=== PATIENT | male | born 1995 | race Caucasian/White ===

== ENCOUNTER 2019-02-06 08:42 | Emergency (ER) | payer MEDICAID ==
[~2019-02-06] VITALS: Ht 170.2 cm; Wt 75.0 kg
[2019-02-06 09:07] LABS: BASOPHILS % (AUTO) 0.4 % (0.0-2.0); EOSINOPHILS % (AUTO) 0.2 % (1.0-6.0); HEMATOCRIT 48.6 % (41-53); HEMOGLOBIN 16.5 g/dL (13.5-17.5); LYMPHOCYTES # (AUTO) 2.2 K/uL (1.0-4.8); MEAN CORPUSCULAR HEMOGLOBIN 31.8 pg (26.0-34.0); MEAN CORPUSCULAR HGB CONC 33.8 G/dL (31.0-37.0); MEAN CORPUSCULAR VOLUME 94 fL (80-100); MONOCYTES # (AUTO) 0.4 K/uL (0.1-1.0); MONOCYTES % (AUTO) 4.9 % (2.0-9.0); NEUTROPHILS # (AUTO) 5.6 K/uL (1.8-7.7); NEUTROPHILS % (AUTO) 67.5 % (40.0-70.0); PLATELET COUNT (AUTO) 252 K/uL (150-450); RED BLOOD CELL COUNT(AUTO) 5.18 MIL/uL (4.50-5.90); RED CELL DISTRIBUTION WIDTH 13.7 % (11.5-14.5)
[2019-02-06 09:24] LABS: ANION GAP 14 mmol/L (8-16); CALCIUM, TOTAL 9.8 mg/dL (8.8-10.5); CARBON DIOXIDE 22 mmol/L (22-29); CHLORIDE 99 mmol/L (98-107); CREATININE 1.19 mg/dL (0.60-1.30); GLOMERULAR FILTR. RATE CALC > 60 mL/min (>60); GLUCOSE,RANDOM 194 mg/dL (70-110); POTASSIUM 3.4 mmol/L (3.5-5.1); SODIUM SERUM 135 mmol/L (136-145); UREA NITROGEN, BLOOD 16 mg/dL (7-18)
[2019-02-06 09:26] LABS: SALICYLATE < 2.8 mg/dL (2.8-20.0)
[2019-02-06 09:30] LABS: ALANINE AMINOTRANSFERASE 56 U/L (12-78); ALBUMIN 4.8 g/dL (3.4-5.0); ALKALINE PHOSPHATASE 69 U/L (46-116); ASPARTATE AMINOTRANSFERASE 46 U/L (15-37); BILIRUBIN,TOTAL 1.1 mg/dL (0.1-1.0); TOTAL PROTEIN, SERUM 8.1 g/dL (6.4-8.2)
[2019-02-06 09:31] LABS: ACETAMINOPHEN < 2 mcg/mL (10-30)
[2019-02-06] MEDS ORDERED: LORA-1000 PO (10:00)
[2019-02-06 10:50] LABS: AMPHET/METH SCREEN,URINE POSITIVE (NEGATIVE); BARBITURATE SCREEN, URINE NEGATIVE (NEGATIVE); BENZODIAZEPINES SCREEN,URINE POSITIVE (NEGATIVE); CANNABINOID SCREEN,URINE POSITIVE (NEGATIVE); COCAINE SCREEN,URINE POSITIVE (NEGATIVE); METHADONE SCREEN, URINE NEGATIVE (NEGATIVE); OPIATE SCREEN,URINE POSITIVE (NEGATIVE)
[2019-02-06 11:19] LABS: APPEARANCE,URINE CLEAR (CLEAR); BILIRUBIN,URINE NEGATIVE (NEGATIVE); GLUCOSE, URINE (UA) NEGATIVE (NEGATIVE); KETONES,URINE NEGATIVE (NEGATIVE); LEUKOCYTE ESTERASE ,URINE NEGATIVE (NEGATIVE); NITRATE,URINE NEGATIVE (NEGATIVE); OCCULT BLOOD,URINE NEGATIVE (NEGATIVE); PROTEIN,URINE SEE CONFIRM (NEGATIVE); UROBILINOGEN,URINE 0.2 mg/dL (<=1.0)
[2019-02-06 11:20] LABS: PHENCYCLIDINE SCREEN,URINE NEGATIVE (NEGATIVE)
[2019-02-06 11:28] LABS: SULFOSALICYLIC ACID,URINE 2+ (Negative)
[2019-02-06 11:30] LABS: BACTERIA,URINE None Seen /HPF (None Seen); RBC,URINE 0-2 /HPF (0-2); SQUAMOUS EPITHELIAL CELL,UR Rare /LPF (None Seen); WBC,URINE 0-2 /HPF (0-5)
[2019-02-06 13:36] VITALS: BP 115/75
== END 2019-02-06 13:44 | disposition home or self-care (01) ==
LOC: EMS 08:43
DX: T40.1X1A Poisoning by heroin, accidental (unintentional), initial encounter (principal); T42.4X1A Poisoning by benzodiazepines, accidental (unintentional), initial encounter; F19.10 Other psychoactive substance abuse, uncomplicated; Y92.89 Other specified places as the place of occurrence of the external cause
CPT/HCPCS: 36415; 80053; 80307; 81001; 85025; 93005; 99291; G0480; 99152; G0481

== ENCOUNTER 2019-03-07 10:39 | Emergency (ER) | payer MEDICAID ==
[~2019-03-07] VITALS: Ht 170.2 cm; Wt 74.9 kg
[~2019-03-07 10:39] MED LIST: LORA-1000 PO
[2019-03-07] MEDS ORDERED: ETOMIDATE 2 MG/ML 10 ML VIAL IV ONE (10:41)
[2019-03-07] MEDS ORDERED: ROCURONIUM BROMIDE 10 MG/ML 5 ML VIAL IV ONE (10:41)
[2019-03-07] MEDS ORDERED: SODIUM BICARBONATE [ADULT] 8.4% 50 MEQ/50 ML SYRINGE IVP ONE (10:41)
[2019-03-07] MEDS ORDERED: DOPamine HCL/D5W 400 MG/250 ML IV BAG IV ONE (10:41)
[2019-03-07] MEDS ORDERED: SUCCINYLCHOLINE CHLORIDE 20 MG/ML 10 ML VIAL IM ONE (10:41)
[2019-03-07] MEDS ORDERED: SODIUM CHLORIDE 0.9% 2,100 ML IV ONE (10:50)
[2019-03-07] MEDS ORDERED: AMPICILLIN SODIUM/SULBACTAM NA 3 GM in SODIUM CHLORIDE 0.9% 100 ML IV ONE (11:00)
[2019-03-07] MEDS ORDERED: PIPERACILLIN SODIUM/TAZOBACTAM 4.5 GM in DEXTROSE 5%-WATER 100 ML IV ONE (11:00)
[2019-03-07 11:08] LABS: ABG A-A DIFF O2 621.7 mmHg (10-20.0); ABG BASE EXCESS -14.3 mmol/L (-2.0-3.0); ABG CARBOXYHEMOGLOBIN 2.6 % (0.0-3.0); ABG HCO3 11.8 mmol/L (22.0-26.0); ABG METHEMOGLOBIN 0.4 % (0.0-1.5); ABG OXYGEN CONTENT 11.5 mL/dL (15.0-23.0); ABG OXYHEMOGLOBIN 51.1 % (94.0-100.0); ABG PCO2 73 mmHg (35-45); ABG PH 6.983 (7.350-7.450); PO2, ARTERIAL BG 27.7 mmHg (80.0-100.0); SOURCE, BLOOD GAS ARTERIAL; TEMPERATURE, FAHRENHEIT, BG 91.5 FAHREN (96.0-98.6)
[2019-03-07 11:09] LABS: ABG OXYGEN SATURATION 52.7 % (95.0-98.0); O2 DEVICE,BLOOD GAS VENTILATOR (ROOM AIR); PEEP,BG 7 cm H2O; SITE, BLOOD GAS RT RADIAL; VT, ABG 500 ml
[2019-03-07 11:26] LABS: BASOPHILS % (AUTO) 0.4 % (0.0-2.0); EOSINOPHILS % (AUTO) 0.8 % (1.0-6.0); HEMATOCRIT 50.7 % (41-53); HEMOGLOBIN 16.5 g/dL (13.5-17.5); LYMPHOCYTES # (AUTO) 2.2 K/uL (1.0-4.8); LYMPHOCYTES % (AUTO) 47.7 % (22.0-44.0); MEAN CORPUSCULAR HEMOGLOBIN 30.9 pg (26.0-34.0); MEAN CORPUSCULAR HGB CONC 32.4 G/dL (31.0-37.0); MEAN CORPUSCULAR VOLUME 95 fL (80-100); MONOCYTES % (AUTO) 0.4 % (2.0-9.0); NEUTROPHILS # (AUTO) 2.3 K/uL (1.8-7.7); NEUTROPHILS % (AUTO) 50.7 % (40.0-70.0); PLATELET COUNT (AUTO) 237 K/uL (150-450); RED BLOOD CELL COUNT(AUTO) 5.32 MIL/uL (4.50-5.90); RED CELL DISTRIBUTION WIDTH 13.8 % (11.5-14.5)
[2019-03-07 11:36] LABS: ANION GAP 12 mmol/L (8-16); CALCIUM, TOTAL 7.8 mg/dL (8.8-10.5); CARBON DIOXIDE 27 mmol/L (22-29); CHLORIDE 105 mmol/L (98-107); CREATININE 1.44 mg/dL (0.60-1.30); GLOMERULAR FILTR. RATE CALC 60 mL/min (>60); GLUCOSE,RANDOM 173 mg/dL (70-110); POTASSIUM 4.3 mmol/L (3.5-5.1); SODIUM SERUM 144 mmol/L (136-145); UREA NITROGEN, BLOOD 11 mg/dL (7-18)
[2019-03-07 11:42] LABS: ALANINE AMINOTRANSFERASE 46 U/L (12-78); ALBUMIN 3.2 g/dL (3.4-5.0); ALKALINE PHOSPHATASE 89 U/L (46-116); ASPARTATE AMINOTRANSFERASE 37 U/L (15-37); BILIRUBIN,TOTAL 0.8 mg/dL (0.1-1.0); CREATINE KINASE, TOTAL ONLY 257 U/L (39-308); TOTAL PROTEIN, SERUM 6.1 g/dL (6.4-8.2)
[2019-03-07 11:45] LABS: B-TYPE NATRIURETIC PEPTIDE 33 pg/mL (0-100)
[2019-03-07 11:50] LABS: LACTIC ACID 5.4 mmol/L (0.4-2.0)
[2019-03-07 11:51] LABS: D-DIMER 12.22 mg/L FEU (0.00-0.50)
[2019-03-07 11:52] LABS: INR 1.2 (0.9-1.1); PROTHROMBIN TIME 12.2 SEC (9.4-11.6)
[2019-03-07] MEDS ORDERED: FUROSEMIDE 40 MG/4 ML VIAL IVP ONE (12:00)
[2019-03-07 12:09] LABS: APPEARANCE,URINE CLEAR (CLEAR); BILIRUBIN,URINE NEGATIVE (NEGATIVE); GLUCOSE, URINE (UA) 500 mg/dL (NEGATIVE); KETONES,URINE NEGATIVE (NEGATIVE); LEUKOCYTE ESTERASE ,URINE NEGATIVE (NEGATIVE); NITRATE,URINE NEGATIVE (NEGATIVE); OCCULT BLOOD,URINE SMALL (NEGATIVE); PH,URINE 5.5 (5.0-8.0); PROTEIN,URINE POS 1+ (NEGATIVE); UROBILINOGEN,URINE 0.2 mg/dL (<=1.0)
[2019-03-07 12:20] LABS: BACTERIA,URINE None Seen /HPF (None Seen); RBC,URINE 0-2 /HPF (0-2); SQUAMOUS EPITHELIAL CELL,UR Few /LPF (None Seen); WBC,URINE None Seen /HPF (0-5)
[2019-03-07 12:21] LABS: HYALINE CASTS, URINE 0-2 /LPF (None Seen)
[2019-03-07] MEDS ORDERED: IOVERSOL 350 MG/ML 100 ML VIAL ONE (12:27)
[2019-03-07] MEDS ORDERED: PROPOFOL 1000 MG/ISO-OSM 100 ML IV PRN (12:30)
[2019-03-07] MEDS ORDERED: IOVERSOL 320 MG/ML 100 ML VIAL ONE (12:44)
[2019-03-07 13:11] LABS: SOURCE, BLOOD GAS ARTERIAL; TEMPERATURE, FAHRENHEIT, BG 92.7 FAHREN (96.0-98.6)
[2019-03-07 13:14] LABS: ABG A-A DIFF O2 621.3 mmHg (10-20.0); ABG BASE EXCESS -5.9 mmol/L (-2.0-3.0); ABG CARBOXYHEMOGLOBIN 2.6 % (0.0-3.0); ABG HCO3 16.9 mmol/L (22.0-26.0); ABG METHEMOGLOBIN 0.1 % (0.0-1.5); ABG OXYGEN CONTENT 13.2 mL/dL (15.0-23.0); ABG OXYGEN SATURATION 55.9 % (95.0-98.0); ABG OXYHEMOGLOBIN 54.4 % (94.0-100.0); ABG PCO2 73 mmHg (35-45); ABG PH 7.119 (7.350-7.450); ABG TOTAL HEMOGLOBIN 17.3 G/dL (12.0-18.0); O2 DEVICE,BLOOD GAS VENTILATOR (ROOM AIR); PEEP,BG 15 cm H2O; SITE, BLOOD GAS RT RADIAL; VT, ABG 500 ml
[2019-03-07] MEDS ORDERED: PHENYLEPHRINE 200 MG/D5%-WATER 250 ML IV PRN (13:23)
[2019-03-07] MEDS ORDERED: NOREPINEPHRINE 4 MG/D5%-WATER 250 ML IV PRN (13:30)
[2019-03-07 14:08] LABS: ABG A-A DIFF O2 618.1 mmHg (10-20.0); ABG BASE EXCESS -5.6 mmol/L (-2.0-3.0); ABG CARBOXYHEMOGLOBIN 1.2 % (0.0-3.0); ABG HCO3 18.6 mmol/L (22.0-26.0); ABG METHEMOGLOBIN 0.3 % (0.0-1.5); ABG OXYGEN CONTENT 22.5 mL/dL (15.0-23.0); ABG OXYGEN SATURATION 87.3 % (95.0-98.0); ABG PCO2 55 mmHg (35-45); ABG TOTAL HEMOGLOBIN 18.7 G/dL (12.0-18.0); SOURCE, BLOOD GAS ARTERIAL; TEMPERATURE, FAHRENHEIT, BG 93.9 FAHREN (96.0-98.6)
[2019-03-07 14:11] LABS: ABG PH 7.218 (7.350-7.450); O2 DEVICE,BLOOD GAS VENTILATOR (ROOM AIR); PO2, ARTERIAL BG 46.1 mmHg (80.0-100.0); SITE, BLOOD GAS RT RADIAL; VENT MODE, BG APRV (ROOM AIR)
[2019-03-07 14:12] LABS: SPONTANEOUS VT, BG 841 ml
[2019-03-07] MEDS ORDERED: ASPIRIN 300 MG RECTAL SUPPOSITORY PR ONE (14:30)
[2019-03-07] MEDS ORDERED: VASOPRESSIN 40 UNITS in DEXTROSE 5%-WATER 98 ML IV PRN (15:30)
[2019-03-07] MEDS ORDERED: LIDOCAINE 1% 10 ML VIAL ONE (16:20)
[2019-03-07 17:19] LABS: ABG A-A DIFF O2 621.9 mmHg (10-20.0); ABG BASE EXCESS -3.8 mmol/L (-2.0-3.0); ABG CARBOXYHEMOGLOBIN 0.9 % (0.0-3.0); ABG HCO3 21.3 mmol/L (22.0-26.0); ABG METHEMOGLOBIN 0.3 % (0.0-1.5); ABG OXYGEN CONTENT 21.6 mL/dL (15.0-23.0); ABG OXYGEN SATURATION 86.6 % (95.0-98.0); ABG OXYHEMOGLOBIN 85.6 % (94.0-100.0); ABG PCO2 42 mmHg (35-45); ABG PH 7.342 (7.350-7.450); SOURCE, BLOOD GAS ARTERIAL; TEMPERATURE, FAHRENHEIT, BG 98.8 FAHREN (96.0-98.6)
[2019-03-07] MEDS ORDERED: ROCURONIUM BROMIDE 10 MG/ML 5 ML VIAL ONE (17:20)
[2019-03-07] MEDS ORDERED: KETAMINE HCL 50 MG/ML 10 ML VIAL ONE (17:22)
[2019-03-07] MEDS ORDERED: ROCURONIUM BROMIDE 10 MG/ML 5 ML VIAL IVP ONE (17:30)
[2019-03-07 17:46] LABS: ABG BASE EXCESS -8.1 mmol/L (-2.0-3.0); ABG CARBOXYHEMOGLOBIN 0.7 % (0.0-3.0); ABG HCO3 18.6 mmol/L (22.0-26.0); ABG METHEMOGLOBIN 0.1 % (0.0-1.5); ABG OXYGEN CONTENT 22.8 mL/dL (15.0-23.0); ABG OXYGEN SATURATION 93.1 % (95.0-98.0); ABG OXYHEMOGLOBIN 92.4 % (94.0-100.0); ABG PCO2 38 mmHg (35-45); ABG PH 7.302 (7.350-7.450); ABG TOTAL HEMOGLOBIN 17.6 G/dL (12.0-18.0); INSPIRATORY TIME, BG 1.8 SEC; O2 DEVICE,BLOOD GAS VENTILATOR (ROOM AIR); PEEP,BG 15 cm H2O; PO2, ARTERIAL BG 65.8 mmHg (80.0-100.0); SITE, BLOOD GAS ARTERIAL LINE; SOURCE, BLOOD GAS ARTERIAL; TEMPERATURE, FAHRENHEIT, BG 98.8 FAHREN (96.0-98.6); VENT MODE, BG Press. Reg. Vol. Con (ROOM AIR)
[2019-03-07] MEDS ORDERED: EPINEPHrine 2 MG in DEXTROSE 5%-WATER 248 ML IV PRN (18:15)
[2019-03-07 18:45] VITALS: BP 76/57
[2019-03-08 06:56] LABS: O2 DEVICE,BLOOD GAS VENTILATOR (ROOM AIR); PO2, ARTERIAL BG 49.3 mmHg (80.0-100.0); SITE, BLOOD GAS ARTERIAL LINE; VENT MODE, BG APRV (ROOM AIR)
== END 2019-03-07 19:00 | disposition short-term general hospital (02) ==
LOC: EMS 10:40
DX: J80 Acute respiratory distress syndrome (principal); E87.4 Mixed disorder of acid-base balance; E87.2 Acidosis; R79.89 Other specified abnormal findings of blood chemistry; F11.10 Opioid abuse, uncomplicated; F41.9 Anxiety disorder, unspecified; F12.90 Cannabis use, unspecified, uncomplicated; F17.210 Nicotine dependence, cigarettes, uncomplicated
CPT/HCPCS: 31500; 36415; 36556; 36600; 70450; 71045; 71260; 80053; 81001; 82550; 82805; 83605; 83880; 84484; 85025; 85379; 85610; 87040; 93005; 96365; 96366; 96367; 96368; 96375; 99291; J0171; J0295; J0330; J1265; J1940; J2370; J2543; J3490 ×7; J7050; J7060 ×2; Q9967 ×2; 94002